=== PATIENT | female | born 1970 | race Caucasian/White ===

== ENCOUNTER 2019-08-21 13:19 | Inpatient (IN) ==
[2019-08-21] MEDS ORDERED: 0.9 % Sodium Chloride 1,000 ML IVC ONE (13:40)
[2019-08-21] MEDS ORDERED: Ipratropium/Albuterol Neb 3 ML IH ONE (13:40)
[2019-08-21 13:58] LABS: Basophils # 0.1 K/mcL (0.0-0.2); Basophils % 0.8 %; Eosinophils # 0.5 K/mcL (0.0-0.6); Eosinophils % 2.8 %; Hematocrit 33.5 % (35.3-44.9); Hemoglobin 10.8 g/dL (11.5-15.4); Immature Granulocytes % 0.9 % (0-4); Lymphocytes # 1.7 K/mcL (0.6-4.6); Mean Corpuscular HGB Conc 32.2 g/dL (31.6-35.5); Mean Corpuscular Hemoglobin 28.3 pg (28.0-33.3); Mean Corpuscular Volume 87.7 fL (83.0-100.0); Mean Platelet Volume 9.6 fL (9.4-12.4); Monocytes # 1.3 K/mcL (0.0-1.3); Monocytes % 6.8 %; Neutrophils # 14.8 K/mcL (1.6-8.9); Platelet Count 326 K/mcL (140-400); Red Blood Count 3.82 M/mcL (3.82-4.97); Red Cell Distribution Width 14.5 % (11.5-14.5); Segmented Neutrophils % 79.7 %; White Blood Count 18.5 K/mcL (4.3-11.1)
[2019-08-21 14:14] LABS: BUN/Creatinine Ratio 23 (6-26); Blood Urea Nitrogen 16 mg/dL (6-20); Calcium 9.2 mg/dL (8.6-10.3); Carbon Dioxide 26 mEq/L (23-29); Chloride 105 mEq/L (98-107); Glucose 124 mg/dL (70-105); Osmolality,Calculated 293 (280-300); Sodium 140 mEq/L (136-145); eGFR For African Americans > 60 (> 60); eGFR For Non-African Americans > 60 (> 60)
[2019-08-21] MEDS ORDERED: cefTRIAXone 1,000 MG in 0.9 % Sodium Chloride Mini Bag 100 ML IVPB ONE (14:53)
[2019-08-21] MEDS ORDERED: Isovue-370 500 ML BOTTLE IVP ONE (14:53)
[2019-08-21] MEDS ORDERED: Azithromycin 500 MG in 0.9 % Sodium Chloride 250 ML IVPB ONE (14:53)
[2019-08-21 15:10] LABS: Bilirubin,Urine Negative (Negative); Blood,Urine Negative (Negative); Clarity,Urine Clear (Clear); Color,Urine Yellow (Yellow); Glucose,Urine (UA) Normal (Normal); Ketones,Urine Negative (Negative); Leukocyte Esterase,Urine Negative (Negative); Nitrite,Urine Negative (Negative); Protein,Urine 30 mg/dL (Neg-Trace); Specific Gravity,Urine 1.017 (1.010-1.025); Urobilinogen,Urine Normal (Normal)
[2019-08-21 15:11] LABS: Bacteria,Urine None Seen per hpf (None-Few); Hyaline Casts,Urine None Seen per lpf (None-Few); RBC,Urine 0-3 per hpf (0-3); Squamous Epithelial Cell,Urine Many per lpf (None-Few); WBC,Urine 0-3 per hpf (0-3)
[2019-08-21] MEDS ORDERED: Ondansetron 4 MG/2 ML VIAL IVP PRN (17:17)
[2019-08-21] MEDS ORDERED: Naloxone 0.4 MG/ML INJ IVP PRN (17:17)
[2019-08-21] MEDS ORDERED: Acetaminophen 325 MG TABLET PO PRN (17:17)
[2019-08-21] MEDS ORDERED: hydrOXYzine pamoate 25 MG CAPSULE PO PRN (17:21)
[2019-08-21] MEDS ORDERED: *HR* Dextrose 50 % in Water (Syg) 50 ML SYRINGE IVP PRN (17:23)
[2019-08-21] MEDS ORDERED: Dextrose Gel 15 GM/37.5 ML TUBE PO PRN ×2 (17:23)
[2019-08-21] MEDS ORDERED: D5% in Water 1,000 ML IVC PRN (17:23)
[2019-08-21] MEDS ORDERED: Ipratropium/Albuterol Neb 3 ML IH PRN (17:27)
[2019-08-21] MEDS ORDERED: GuaiFENesin Liq 200 MG/10 ML UDC PO PRN (17:50)
[2019-08-21] MEDS: Doxycycline 100 MG in 0.9 % Sodium Chloride Mini Bag 100 ML IVPB SCH (18:40)
[2019-08-21 19:50] LABS: Adenovirus Not Detected (Not Detect); Bordetella Pertussis Not Detected (Not Detect); Chlamydophila pneumoniae Not Detected (Not Detect); Coronavirus 229E Not Detected (Not Detect); Coronavirus HKU1 Not Detected (Not Detect); Coronavirus NL63 Not Detected (Not Detect); Coronavirus OC43 Not Detected (Not Detect); Human Metapneumovirus Not Detected (Not Detect); Human Rhinovirus/Enterovirus Not Detected (Not Detect); Influenza A Subtype 2009 H1 Not Detected (Not Detect); Influenza A Untypeable Not Detected (Not Detect); Influenza B Not Detected (Not Detect); Mycoplasma pneumoniae Not Detected (Not Detect); Parainfluenza Virus 1 Not Detected (Not Detect); Parainfluenza Virus 2 Not Detected (Not Detect); Parainfluenza Virus 3 Not Detected (Not Detect); Parainfluenza Virus 4 Not Detected (Not Detect); Respiratory Syncytial Virus Not Detected (Not Detect)
[2019-08-21] MEDS: tiZANidine 4 MG TABLET PO PRN (20:35)
[2019-08-21] MEDS: Insulin DETEMIR 100 UNIT/ML X5UNITS SQ SCH (20:36)
[2019-08-21] MEDS: Ipratropium/Albuterol Neb 3 ML IH SCH (21:07)
[2019-08-21] MEDS: *HR* Heparin 5,000 UNIT/ML VIAL SQ SCH (23:47)
[2019-08-21] MEDS: Piperacillin/Tazobactam 3.375 GM in 0.9 % Sodium Chloride Mini Bag 100 ML IVPB SCH (23:48)
[2019-08-22 02:06] LABS: Basophils # 0.1 K/mcL (0.0-0.2); Basophils % 0.8 %; Eosinophils # 0.6 K/mcL (0.0-0.6); Eosinophils % 3.4 %; Hematocrit 28.5 % (35.3-44.9); Immature Granulocytes % 0.8 % (0-4); Lymphocytes # 2.1 K/mcL (0.6-4.6); Lymphocytes % 12.4 %; Mean Corpuscular HGB Conc 31.6 g/dL (31.6-35.5); Mean Corpuscular Hemoglobin 28.5 pg (28.0-33.3); Mean Corpuscular Volume 90.2 fL (83.0-100.0); Mean Platelet Volume 10.1 fL (9.4-12.4); Monocytes # 1.4 K/mcL (0.0-1.3); Monocytes % 8.3 %; Neutrophils # 12.8 K/mcL (1.6-8.9); Platelet Count 288 K/mcL (140-400); Red Blood Count 3.16 M/mcL (3.82-4.97); Red Cell Distribution Width 14.5 % (11.5-14.5); Segmented Neutrophils % 74.3 %; White Blood Count 17.2 K/mcL (4.3-11.1)
[2019-08-22 02:22] LABS: BUN/Creatinine Ratio 15 (6-26); Blood Urea Nitrogen 13 mg/dL (6-20); Calcium 8.3 mg/dL (8.6-10.3); Carbon Dioxide 26 mEq/L (23-29); Chloride 106 mEq/L (98-107); Glucose 135 mg/dL (70-105); Magnesium 1.2 mg/dL (1.6-2.6); Osmolality,Calculated 290 (280-300); Potassium 4.2 mEq/L (3.5-5.1); Sodium 139 mEq/L (136-145); eGFR For African Americans > 60 (> 60); eGFR For Non-African Americans > 60 (> 60)
[2019-08-22] MEDS: Ipratropium/Albuterol Neb 3 ML IH SCH ×4 (04:19→21:56)
[2019-08-22] MEDS: Doxycycline 100 MG in 0.9 % Sodium Chloride Mini Bag 100 ML IVPB SCH ×2 (06:34→17:18)
[2019-08-22] MEDS ORDERED: Perflutren Lipid Microsphere 1.3 ML in 0.9 % Sodium Chloride 8.7 ML IVP ONE (07:55)
[2019-08-22 08:13] LABS: Hemoglobin 10.2 g/dL (11.5-15.4)
[2019-08-22] MEDS ORDERED: Perflutren Lipid Microsphere 2 ML VIAL ONE (08:21)
[2019-08-22] MEDS: Insulin LISPRO 300 UNITS/3 ML VIAL SQ SCH ×3 (09:22→17:16)
[2019-08-22] MEDS: Piperacillin/Tazobactam 3.375 GM in 0.9 % Sodium Chloride Mini Bag 100 ML IVPB SCH ×3 (09:22→22:45)
[2019-08-22] MEDS: *HR* HYDROcodone/Acet 5/325 mg TABLET PO PRN ×2 (09:24→22:50)
[2019-08-22] MEDS ORDERED: Furosemide 20 MG/2 ML VIAL IVP ONE (13:47)
[2019-08-22] MEDS ORDERED: Vancomycin 1 EACH in 0.9 % Sodium Chloride 500 ML IVPB SCH (14:00)
[2019-08-22] MEDS: Multivit/Ca/Min/Fe/FA 1 TAB TABLET PO SCH (14:01)
[2019-08-22] MEDS: Magnesium Oxide 400 MG TABLET PO SCH ×3 (14:01→20:44)
[2019-08-22] MEDS: Loratadine 10 MG TABLET PO SCH (14:01)
[2019-08-22] MEDS: amLODIPine 5 MG TABLET PO SCH (14:02)
[2019-08-22] MEDS: *HR* Heparin 5,000 UNIT/ML VIAL SQ SCH ×3 (14:02→22:50)
[2019-08-22] MEDS: Lisinopril 20 MG TABLET PO SCH (14:02)
[2019-08-22] MEDS: (Mirabegron [Myrbetriq] 50 MG) PO SCH (14:03)
[2019-08-22] MEDS: MethylPREDNISolone 40 MG/ML VIAL IVP SCH ×2 (17:15→22:50)
[2019-08-22] MEDS: Insulin DETEMIR 100 UNIT/ML X5UNITS SQ SCH (20:44)
[2019-08-23] MEDS: Ipratropium/Albuterol Neb 3 ML IH SCH ×4 (04:18→21:04)
[2019-08-23] MEDS: Doxycycline 100 MG in 0.9 % Sodium Chloride Mini Bag 100 ML IVPB SCH ×2 (05:08→18:39)
[2019-08-23 05:27] LABS: Basophils # 0.1 K/mcL (0.0-0.2); Basophils % 0.4 %; Hematocrit 30.7 % (35.3-44.9); Hemoglobin 9.5 g/dL (11.5-15.4); Immature Granulocytes % 1.7 % (0-4); Lymphocytes # 0.8 K/mcL (0.6-4.6); Lymphocytes % 4.2 %; Mean Corpuscular HGB Conc 30.9 g/dL (31.6-35.5); Mean Corpuscular Hemoglobin 27.9 pg (28.0-33.3); Mean Corpuscular Volume 90.3 fL (83.0-100.0); Mean Platelet Volume 9.9 fL (9.4-12.4); Monocytes # 0.4 K/mcL (0.0-1.3); Neutrophils # 18.3 K/mcL (1.6-8.9); Platelet Count 265 K/mcL (140-400); Red Cell Distribution Width 14.5 % (11.5-14.5); Segmented Neutrophils % 91.7 %; White Blood Count 19.9 K/mcL (4.3-11.1)
[2019-08-23 05:43] LABS: BUN/Creatinine Ratio 21 (6-26); Blood Urea Nitrogen 15 mg/dL (6-20); Calcium 8.6 mg/dL (8.6-10.3); Carbon Dioxide 25 mEq/L (23-29); Chloride 104 mEq/L (98-107); Glucose 296 mg/dL (70-105); Osmolality,Calculated 296 (280-300); Potassium 4.8 mEq/L (3.5-5.1); Sodium 137 mEq/L (136-145); eGFR For African Americans > 60 (> 60); eGFR For Non-African Americans > 60 (> 60)
[2019-08-23] MEDS: Piperacillin/Tazobactam 3.375 GM in 0.9 % Sodium Chloride Mini Bag 100 ML IVPB SCH ×2 (09:58→16:28)
[2019-08-23] MEDS: Loratadine 10 MG TABLET PO SCH (09:59)
[2019-08-23] MEDS: *HR* Heparin 5,000 UNIT/ML VIAL SQ SCH ×2 (09:59→16:26)
[2019-08-23] MEDS: Multivit/Ca/Min/Fe/FA 1 TAB TABLET PO SCH (09:59)
[2019-08-23] MEDS: amLODIPine 5 MG TABLET PO SCH (09:59)
[2019-08-23] MEDS: Lisinopril 20 MG TABLET PO SCH (09:59)
[2019-08-23] MEDS: Magnesium Oxide 400 MG TABLET PO SCH (09:59)
[2019-08-23] MEDS: MethylPREDNISolone 40 MG/ML VIAL IVP SCH ×2 (10:00→16:26)
[2019-08-23] MEDS: Insulin LISPRO 300 UNITS/3 ML VIAL SQ SCH ×4 (10:00→22:06)
[2019-08-23] MEDS: (Mirabegron [Myrbetriq] 50 MG) PO SCH (10:01)
[2019-08-23 10:09] LABS: Magnesium 1.7 mg/dL (1.6-2.6); Phosphorous 4.7 mg/dL (2.7-4.5)
[2019-08-23] MEDS ORDERED: Furosemide 20 MG/2 ML VIAL IVP ONE ×2 (10:27→17:00)
[2019-08-23] MEDS: Insulin DETEMIR 100 UNIT/ML X5UNITS SQ SCH ×2 (12:08→20:47)
[2019-08-23] MEDS ORDERED: Aminoglycoside Consult 1 EACH MC ONE (14:54)
[2019-08-23 18:49] LABS: Magnesium 2.1 mg/dL (1.6-2.6); Phosphorous 2.7 mg/dL (2.7-4.5); Potassium 4.7 mEq/L (3.5-5.1)
[2019-08-23] MEDS ORDERED: *HR* Dextrose 50 % in Water (Syg) 50 ML SYRINGE IVP PRN (21:38)
[2019-08-23] MEDS ORDERED: Dextrose Gel 15 GM/37.5 ML TUBE PO PRN ×2 (21:38)
[2019-08-23] MEDS ORDERED: D5% in Water 1,000 ML IVC PRN (21:38)
[2019-08-24] MEDS: *HR* Heparin 5,000 UNIT/ML VIAL SQ SCH ×3 (01:05→16:10)
[2019-08-24] MEDS: MethylPREDNISolone 40 MG/ML VIAL IVP SCH ×3 (01:05→20:11)
[2019-08-24] MEDS: Piperacillin/Tazobactam 3.375 GM in 0.9 % Sodium Chloride Mini Bag 100 ML IVPB SCH ×3 (01:06→16:58)
[2019-08-24] MEDS: Ipratropium/Albuterol Neb 3 ML IH SCH ×4 (04:34→22:24)
[2019-08-24 04:48] LABS: Basophils % 0.2 %; Hematocrit 29.6 % (35.3-44.9); Hemoglobin 9.5 g/dL (11.5-15.4); Immature Granulocytes % 1.8 % (0-4); Lymphocytes # 0.8 K/mcL (0.6-4.6); Lymphocytes % 3.8 %; Mean Corpuscular HGB Conc 32.1 g/dL (31.6-35.5); Mean Corpuscular Hemoglobin 28.3 pg (28.0-33.3); Mean Corpuscular Volume 88.1 fL (83.0-100.0); Monocytes # 0.8 K/mcL (0.0-1.3); Monocytes % 3.9 %; Platelet Count 327 K/mcL (140-400); Red Blood Count 3.36 M/mcL (3.82-4.97); Red Cell Distribution Width 14.2 % (11.5-14.5); Segmented Neutrophils % 90.3 %; White Blood Count 21.1 K/mcL (4.3-11.1)
[2019-08-24 05:07] LABS: BUN/Creatinine Ratio 29 (6-26); Blood Urea Nitrogen 26 mg/dL (6-20); Calcium 9.1 mg/dL (8.6-10.3); Carbon Dioxide 29 mEq/L (23-29); Chloride 101 mEq/L (98-107); Glucose 345 mg/dL (70-105); Magnesium 1.9 mg/dL (1.6-2.6); Osmolality,Calculated 302 (280-300); Potassium 4.9 mEq/L (3.5-5.1); Sodium 137 mEq/L (136-145); eGFR For African Americans > 60 (> 60); eGFR For Non-African Americans > 60 (> 60)
[2019-08-24] MEDS: Doxycycline 100 MG in 0.9 % Sodium Chloride Mini Bag 100 ML IVPB SCH ×2 (05:45→21:25)
[2019-08-24] MEDS: Lisinopril 20 MG TABLET PO SCH (08:49)
[2019-08-24] MEDS: amLODIPine 5 MG TABLET PO SCH (08:49)
[2019-08-24] MEDS: Magnesium Oxide 400 MG TABLET PO SCH (08:49)
[2019-08-24] MEDS: Loratadine 10 MG TABLET PO SCH (08:49)
[2019-08-24] MEDS: Multivit/Ca/Min/Fe/FA 1 TAB TABLET PO SCH (08:49)
[2019-08-24] MEDS: Insulin LISPRO 300 UNITS/3 ML VIAL SQ SCH ×8 (08:50→20:11)
[2019-08-24] MEDS: (Mirabegron [Myrbetriq] 50 MG) PO SCH (08:51)
[2019-08-24] MEDS: Insulin DETEMIR 100 UNIT/ML X5UNITS SQ SCH ×2 (08:52→20:12)
[2019-08-24 10:32] LABS: BUN/Creatinine Ratio 32 (6-26); Blood Urea Nitrogen 29 mg/dL (6-20); Calcium 9.1 mg/dL (8.6-10.3); Carbon Dioxide 25 mEq/L (23-29); Chloride 101 mEq/L (98-107); Glucose 379 mg/dL (70-105); Osmolality,Calculated 301 (280-300); Potassium 4.9 mEq/L (3.5-5.1); Sodium 135 mEq/L (136-145); eGFR For African Americans > 60 (> 60); eGFR For Non-African Americans > 60 (> 60)
[2019-08-25] MEDS: Piperacillin/Tazobactam 3.375 GM in 0.9 % Sodium Chloride Mini Bag 100 ML IVPB SCH ×4 (00:11→23:44)
[2019-08-25] MEDS: *HR* Heparin 5,000 UNIT/ML VIAL SQ SCH ×4 (00:12→23:44)
[2019-08-25] MEDS: Ipratropium/Albuterol Neb 3 ML IH SCH ×4 (04:01→21:20)
[2019-08-25 05:07] LABS: Basophils # 0.1 K/mcL (0.0-0.2); Basophils % 0.3 %; Eosinophils % 0.1 %; Hematocrit 30.2 % (35.3-44.9); Hemoglobin 9.6 g/dL (11.5-15.4); Immature Granulocytes % 2.3 % (0-4); Lymphocytes # 1.9 K/mcL (0.6-4.6); Lymphocytes % 10.3 %; Mean Corpuscular HGB Conc 31.8 g/dL (31.6-35.5); Mean Corpuscular Hemoglobin 28.2 pg (28.0-33.3); Mean Corpuscular Volume 88.6 fL (83.0-100.0); Mean Platelet Volume 9.7 fL (9.4-12.4); Monocytes % 5.4 %; Neutrophils # 15.4 K/mcL (1.6-8.9); Platelet Count 336 K/mcL (140-400); Red Blood Count 3.41 M/mcL (3.82-4.97); Segmented Neutrophils % 81.6 %; White Blood Count 18.8 K/mcL (4.3-11.1)
[2019-08-25] MEDS: Doxycycline 100 MG in 0.9 % Sodium Chloride Mini Bag 100 ML IVPB SCH ×2 (05:07→19:41)
[2019-08-25 05:24] LABS: BUN/Creatinine Ratio 36 (6-26); Blood Urea Nitrogen 34 mg/dL (6-20); Carbon Dioxide 28 mEq/L (23-29); Chloride 102 mEq/L (98-107); Glucose 288 mg/dL (70-105); Magnesium 1.8 mg/dL (1.6-2.6); Osmolality,Calculated 302 (280-300); Potassium 4.8 mEq/L (3.5-5.1); Sodium 137 mEq/L (136-145); eGFR For African Americans > 60 (> 60); eGFR For Non-African Americans > 60 (> 60)
[2019-08-25] MEDS: Magnesium Oxide 400 MG TABLET PO SCH (08:26)
[2019-08-25] MEDS: Lisinopril 20 MG TABLET PO SCH (08:26)
[2019-08-25] MEDS: Loratadine 10 MG TABLET PO SCH (08:26)
[2019-08-25] MEDS: Multivit/Ca/Min/Fe/FA 1 TAB TABLET PO SCH (08:26)
[2019-08-25] MEDS: amLODIPine 5 MG TABLET PO SCH (08:27)
[2019-08-25] MEDS: Insulin LISPRO 300 UNITS/3 ML VIAL SQ SCH ×7 (08:28→21:11)
[2019-08-25] MEDS: MethylPREDNISolone 40 MG/ML VIAL IVP SCH ×2 (08:30→19:40)
[2019-08-25] MEDS: Insulin DETEMIR 100 UNIT/ML X5UNITS SQ SCH ×2 (08:33→21:11)
[2019-08-25 09:05] LABS: ANA IgG by ELISA DETECTED (None Detected)
[2019-08-25 10:22] LABS: BUN/Creatinine Ratio 36 (6-26); Blood Urea Nitrogen 33 mg/dL (6-20); Calcium 9.3 mg/dL (8.6-10.3); Carbon Dioxide 28 mEq/L (23-29); Chloride 101 mEq/L (98-107); Glucose 295 mg/dL (70-105); Osmolality,Calculated 304 (280-300); Sodium 138 mEq/L (136-145); eGFR For African Americans > 60 (> 60); eGFR For Non-African Americans > 60 (> 60)
[2019-08-25] MEDS: (Mirabegron [Myrbetriq] 50 MG) PO SCH (10:45)
[2019-08-25 15:19] LABS: Phosphorous 3.5 mg/dL (2.7-4.5)
[2019-08-25] MEDS: Furosemide 20 MG TABLET PO SCH (15:40)
[2019-08-26] MEDS: tiZANidine 4 MG TABLET PO PRN (00:08)
[2019-08-26 01:47] LABS: Basophils # 0.1 K/mcL (0.0-0.2); Basophils % 0.3 %; Eosinophils % 0.1 %; Hematocrit 30.5 % (35.3-44.9); Hemoglobin 9.6 g/dL (11.5-15.4); Immature Granulocytes % 4.8 % (0-4); Lymphocytes # 1.3 K/mcL (0.6-4.6); Lymphocytes % 8.3 %; Mean Corpuscular HGB Conc 31.5 g/dL (31.6-35.5); Mean Corpuscular Hemoglobin 28.1 pg (28.0-33.3); Mean Corpuscular Volume 89.2 fL (83.0-100.0); Mean Platelet Volume 9.7 fL (9.4-12.4); Monocytes # 0.7 K/mcL (0.0-1.3); Monocytes % 4.3 %; Neutrophils # 12.9 K/mcL (1.6-8.9); Platelet Count 318 K/mcL (140-400); Red Blood Count 3.42 M/mcL (3.82-4.97); Red Cell Distribution Width 13.9 % (11.5-14.5); Segmented Neutrophils % 82.2 %; White Blood Count 15.7 K/mcL (4.3-11.1)
[2019-08-26 02:33] LABS: BUN/Creatinine Ratio 34 (6-26); Blood Urea Nitrogen 31 mg/dL (6-20); Calcium 9.2 mg/dL (8.6-10.3); Carbon Dioxide 26 mEq/L (23-29); Chloride 97 mEq/L (98-107); Glucose 343 mg/dL (70-105); Osmolality,Calculated 298 (280-300); Potassium 5.1 mEq/L (3.5-5.1); Sodium 134 mEq/L (136-145); eGFR For African Americans > 60 (> 60); eGFR For Non-African Americans > 60 (> 60)
[2019-08-26] MEDS: Ipratropium/Albuterol Neb 3 ML IH SCH ×2 (03:50→10:00)
[2019-08-26 04:52] LABS: ABG Base Excess 7 mEq/L (-2 to 3); ABG HCO3 31 mEq/L (21-27); ABG Oxygen Saturation 93 % (95-98); ABG PCO2 46 mmHg (35-45); ABG PH 7.45 pH Units (7.32-7.45); ABG PO2 66 mmHg (85-104); ABG TCO2 33 mEq/L (20-26)
[2019-08-26] MEDS: Doxycycline 100 MG in 0.9 % Sodium Chloride Mini Bag 100 ML IVPB SCH (05:35)
[2019-08-26 08:37] LABS: Serine Protease-3 Antibody 2 AU/mL (0-19)
[2019-08-26] MEDS: Insulin DETEMIR 100 UNIT/ML X5UNITS SQ SCH (09:25)
[2019-08-26] MEDS: Piperacillin/Tazobactam 3.375 GM in 0.9 % Sodium Chloride Mini Bag 100 ML IVPB SCH (09:25)
[2019-08-26] MEDS: Multivit/Ca/Min/Fe/FA 1 TAB TABLET PO SCH (09:26)
[2019-08-26] MEDS: MethylPREDNISolone 40 MG/ML VIAL IVP SCH (09:26)
[2019-08-26] MEDS: Magnesium Oxide 400 MG TABLET PO SCH (09:26)
[2019-08-26] MEDS: Loratadine 10 MG TABLET PO SCH (09:26)
[2019-08-26] MEDS: Lisinopril 20 MG TABLET PO SCH (09:26)
[2019-08-26] MEDS: amLODIPine 5 MG TABLET PO SCH (09:26)
[2019-08-26] MEDS: Furosemide 20 MG TABLET PO SCH (09:27)
[2019-08-26] MEDS: *HR* Heparin 5,000 UNIT/ML VIAL SQ SCH (09:27)
[2019-08-26] MEDS: Insulin LISPRO 300 UNITS/3 ML VIAL SQ SCH ×4 (09:27→11:37)
[2019-08-26] MEDS: (Mirabegron [Myrbetriq] 50 MG) PO SCH (09:28)
[2019-08-26 10:38] LABS: ANA HEp-2 IgG IFA <1:80 (<1:80)
[2019-08-26 11:15] VITALS: BP 173/87
[2019-08-26 16:50] LABS: APTT (LE Anticoag) 48 sec (32-48); Diluted Russell Viper Venom 36 sec (33-44)
[2019-08-27 12:54] LABS: GBM IgG Multiplex Bead Assay 0 AU/mL (0-19); Glomerular Basement Memb IgG NEGATIVE (Negative)
== END 2019-08-26 14:55 | disposition home or self-care (01) | DRG 871 ==
LOC: 2NNU 13:19 → EMEROOARM 13:19 → SUATTDRO 17:37 → 2NNU 18:15
PROVIDERS: ADMIT Internal Medicine; ATTEND Internal Medicine

== ENCOUNTER 2020-07-18 19:45 | Inpatient (IN) ==
[2020-07-18] MEDS ORDERED: Isovue-370 500 ML BOTTLE IVP ONE ×2 (20:39→23:01)
[2020-07-18 20:56] LABS: Hematocrit 37.1 % (35.3-44.9); Immature Granulocytes % 1.2 % (0-4); Lymphocytes % 14.7 %; Mean Corpuscular HGB Conc 32.3 g/dL (31.6-35.5); Mean Corpuscular Hemoglobin 26.5 pg (28.0-33.3); Mean Corpuscular Volume 82.1 fL (83.0-100.0); Mean Platelet Volume 9.9 fL (9.4-12.4); Monocytes % 5.9 %; Platelet Count 337 K/mcL (140-400); Red Blood Count 4.52 M/mcL (3.82-4.97); Red Cell Distribution Width 13.4 % (11.5-14.5); Segmented Neutrophils % 76.8 %; White Blood Count 13.2 K/mcL (4.3-11.1)
[2020-07-18 20:57] LABS: Basophils # 0.1 K/mcL (0.0-0.2); Basophils % 0.4 %; Eosinophils # 0.1 K/mcL (0.0-0.6); Lymphocytes # 1.9 K/mcL (0.6-4.6); Monocytes # 0.8 K/mcL (0.0-1.3); Neutrophils # 10.1 K/mcL (1.6-8.9)
[2020-07-18 21:01] LABS: BUN/Creatinine Ratio 21 (6-26); Blood Urea Nitrogen 21 mg/dL (6-20); Calcium 8.8 mg/dL (8.6-10.3); Carbon Dioxide 22 mEq/L (23-29); Chloride 101 mEq/L (98-107); Glucose 138 mg/dL (70-105); Osmolality,Calculated 287 (280-300); Sodium 136 mEq/L (136-145); eGFR For African Americans > 60 (> 60); eGFR For Non-African Americans 58 (> 60)
[2020-07-18 21:02] LABS: Troponin I < 0.03 ng/mL (< 0.04)
[2020-07-18] MEDS ORDERED: Azithromycin 500 MG in 0.9 % Sodium Chloride 250 ML IVPB ONE (21:05)
[2020-07-18] MEDS ORDERED: cefTRIAXone 1,000 MG in 0.9 % Sodium Chloride Mini Bag 100 ML IVPB ONE (21:05)
[2020-07-18 21:40] LABS: Platelet Estimate Normal (Normal)
[2020-07-18 22:49] LABS: Adenovirus Not Detected (Not Detect); Coronavirus 229E Not Detected (Not Detect); Coronavirus HKU1 Not Detected (Not Detect); Coronavirus NL63 Not Detected (Not Detect); Coronavirus OC43 Not Detected (Not Detect)
[2020-07-18 22:50] LABS: Human Metapneumovirus Not Detected (Not Detect); Human Rhinovirus/Enterovirus Not Detected (Not Detect); Influenza A Subtype 2009 H1 Not Detected (Not Detect); Influenza B Not Detected (Not Detect); SARS-CoV-2 DETECTED (Not Detect)
[2020-07-18 22:51] LABS: Bordetella Pertussis Not Detected (Not Detect); Chlamydophila pneumoniae Not Detected (Not Detect); Mycoplasma pneumoniae Not Detected (Not Detect); Parainfluenza Virus 1 Not Detected (Not Detect); Parainfluenza Virus 2 Not Detected (Not Detect); Parainfluenza Virus 3 Not Detected (Not Detect); Parainfluenza Virus 4 Not Detected (Not Detect); Respiratory Syncytial Virus Not Detected (Not Detect)
[2020-07-18] MEDS ORDERED: Dexamethasone Sodium Phos/PF 10 MG/ML VIAL PO ONE (23:01)
[2020-07-18] MEDS ORDERED: Ondansetron 4 MG/2 ML VIAL IVP PRN (23:42)
[2020-07-18] MEDS ORDERED: Naloxone 0.4 MG/ML INJ IVP PRN (23:42)
[2020-07-19] MEDS ORDERED: D5% in Water 1,000 ML IVC PRN (01:08)
[2020-07-19] MEDS ORDERED: Dextrose Gel 15 GM/37.5 ML TUBE PO PRN ×2 (01:08)
[2020-07-19] MEDS ORDERED: *HR* Dextrose 50 % in Water (Vial) 50 ML VIAL IVP PRN (01:08)
[2020-07-19] MEDS: Insulin LISPRO 300 UNITS/3 ML VIAL SQ SCH ×4 (01:58→17:44)
[2020-07-19 02:02] LABS: INR 1.3; Prothrombin Time 14.8 Seconds (9.4-12.1)
[2020-07-19 02:03] LABS: Hematocrit 33.8 % (35.3-44.9); Hemoglobin 11.1 g/dL (11.5-15.4); Lymphocytes # 1.2 K/mcL (0.6-4.6); Mean Corpuscular HGB Conc 32.8 g/dL (31.6-35.5); Mean Corpuscular Hemoglobin 27.5 pg (28.0-33.3); Mean Corpuscular Volume 83.9 fL (83.0-100.0); Mean Platelet Volume 10.3 fL (9.4-12.4); Platelet Count 321 K/mcL (140-400); Red Blood Count 4.03 M/mcL (3.82-4.97); Red Cell Distribution Width 13.5 % (11.5-14.5); White Blood Count 11.9 K/mcL (4.3-11.1)
[2020-07-19 02:17] LABS: Alanine Aminotransferase 14 Units/L (7-52); Albumin 3.5 g/dL (3.5-5.7); Alkaline Phosphatase 75 Units/L (34-104); Aspartate Amino Transferase 27 Units/L (13-39); BUN/Creatinine Ratio 21 (6-26); Bilirubin,Total 0.5 mg/dL (0.3-1.0); Blood Urea Nitrogen 20 mg/dL (6-20); Calcium 8.5 mg/dL (8.6-10.3); Carbon Dioxide 23 mEq/L (23-29); Chloride 101 mEq/L (98-107); Globulin 3.6 g/dL (2.4-3.5); Glucose 131 mg/dL (70-105); Magnesium 1.3 mg/dL (1.6-2.6); Osmolality,Calculated 284 (280-300); Phosphorous 3.6 mg/dL (2.7-4.5); Potassium 3.9 mEq/L (3.5-5.1); Sodium 135 mEq/L (136-145); Total Protein 7.1 g/dL (6.4-8.9); eGFR For African Americans > 60 (> 60); eGFR For Non-African Americans > 60 (> 60)
[2020-07-19 02:52] LABS: Monocytes # 0.2 K/mcL (0.0-1.3); Neutrophils # 10.5 K/mcL (1.6-8.9)
[2020-07-19 02:53] LABS: Platelet Estimate Normal (Normal)
[2020-07-19] MEDS: Dexamethasone Sodium Phos/PF 10 MG/ML VIAL IVP SCH (08:19)
[2020-07-19] MEDS: cefTRIAXone 1,000 MG in Water for inj. (sterile) 10 ML IVP SCH (08:20)
[2020-07-19] MEDS: Azithromycin 500 MG in 0.9 % Sodium Chloride 250 ML IVPB SCH (08:20)
[2020-07-19] MEDS: *HR* Heparin 5,000 UNIT/ML VIAL SQ SCH ×2 (13:39→20:33)
[2020-07-19] MEDS ORDERED: *HR* HYDROcodone/Acet 5/325 mg TABLET PO PRN (20:21)
[2020-07-19] MEDS ORDERED: tiZANidine 4 MG TABLET PO PRN (20:21)
[2020-07-19] MEDS: QUEtiapine Fumarate 100 MG TABLET PO SCH (20:36)
[2020-07-19] MEDS: Latanoprost 2.5 ML BOTTLE BOTH EYES SCH (20:36)
[2020-07-19] MEDS: Acetaminophen 325 MG TABLET PO PRN (20:51)
[2020-07-19] MEDS ORDERED: Insulin DETEMIR 100 UNIT/ML X5UNITS SQ SCH (21:00)
[2020-07-20] MEDS: *HR* Heparin 5,000 UNIT/ML VIAL SQ SCH ×3 (05:14→21:08)
[2020-07-20] MEDS: Insulin LISPRO 300 UNITS/3 ML VIAL SQ SCH ×6 (07:59→21:51)
[2020-07-20] MEDS: Azithromycin 500 MG in 0.9 % Sodium Chloride 250 ML IVPB SCH (08:10)
[2020-07-20] MEDS: cefTRIAXone 1,000 MG in Water for inj. (sterile) 10 ML IVP SCH (08:11)
[2020-07-20] MEDS: Aspirin 81 MG TAB.CHEW PO SCH (08:12)
[2020-07-20] MEDS: amLODIPine 5 MG TABLET PO SCH (08:12)
[2020-07-20] MEDS: Magnesium Oxide 400 MG TABLET PO SCH (08:12)
[2020-07-20] MEDS: Dexamethasone Sodium Phos/PF 10 MG/ML VIAL IVP SCH (08:13)
[2020-07-20] MEDS: lisinopriL 20 MG TABLET PO SCH (08:13)
[2020-07-20 11:28] LABS: Basophils # 0.1 K/mcL (0.0-0.2); Basophils % 0.5 %; Eosinophils # 0.1 K/mcL (0.0-0.6); Eosinophils % 0.7 %; Hematocrit 33.7 % (35.3-44.9); Hemoglobin 10.8 g/dL (11.5-15.4); Immature Granulocytes % 2.8 % (0-4); Lymphocytes # 1.2 K/mcL (0.6-4.6); Lymphocytes % 9.5 %; Mean Corpuscular Hemoglobin 26.9 pg (28.0-33.3); Mean Corpuscular Volume 83.8 fL (83.0-100.0); Mean Platelet Volume 9.5 fL (9.4-12.4); Monocytes # 0.8 K/mcL (0.0-1.3); Neutrophils # 10.3 K/mcL (1.6-8.9); Nucleated Red Blood Cells 0.2 /100 WBC (0); Platelet Count 359 K/mcL (140-400); Red Blood Count 4.02 M/mcL (3.82-4.97); Red Cell Distribution Width 13.3 % (11.5-14.5); Segmented Neutrophils % 80.5 %; White Blood Count 12.9 K/mcL (4.3-11.1)
[2020-07-20 11:46] LABS: Alanine Aminotransferase 15 Units/L (7-52); Albumin 3.4 g/dL (3.5-5.7); Alkaline Phosphatase 68 Units/L (34-104); Aspartate Amino Transferase 31 Units/L (13-39); BUN/Creatinine Ratio 30 (6-26); Bilirubin,Total 0.3 mg/dL (0.3-1.0); Blood Urea Nitrogen 24 mg/dL (6-20); Calcium 9.1 mg/dL (8.6-10.3); Carbon Dioxide 25 mEq/L (23-29); Chloride 107 mEq/L (98-107); Globulin 3.4 g/dL (2.4-3.5); Glucose 197 mg/dL (70-105); Magnesium 1.7 mg/dL (1.6-2.6); Osmolality,Calculated 298 (280-300); Potassium 4.3 mEq/L (3.5-5.1); Sodium 139 mEq/L (136-145); Total Protein 6.8 g/dL (6.4-8.9); eGFR For African Americans > 60 (> 60); eGFR For Non-African Americans > 60 (> 60)
[2020-07-20] MEDS ORDERED: 0.9 % Sodium Chloride 500 ML ONE (16:59)
[2020-07-20] MEDS ORDERED: Insulin DETEMIR 100 UNIT/ML X5UNITS SQ SCH (21:00)
[2020-07-20] MEDS: QUEtiapine Fumarate 100 MG TABLET PO SCH (21:08)
[2020-07-20] MEDS: Latanoprost 2.5 ML BOTTLE BOTH EYES SCH (21:08)
[2020-07-20] MEDS: Acetaminophen 325 MG TABLET PO PRN (21:29)
[2020-07-20] MEDS ORDERED: 0.9 % Sodium Chloride 250 ML ONE (22:20)
[2020-07-21] MEDS: *HR* Heparin 5,000 UNIT/ML VIAL SQ SCH ×3 (05:28→21:41)
[2020-07-21 06:41] LABS: Basophils # 0.1 K/mcL (0.0-0.2); Basophils % 0.7 %; Eosinophils # 0.3 K/mcL (0.0-0.6); Eosinophils % 1.8 %; Hematocrit 31.4 % (35.3-44.9); Hemoglobin 9.7 g/dL (11.5-15.4); Immature Granulocytes % 2.9 % (0-4); Lymphocytes # 2.3 K/mcL (0.6-4.6); Lymphocytes % 17.2 %; Mean Corpuscular HGB Conc 30.9 g/dL (31.6-35.5); Mean Corpuscular Hemoglobin 26.4 pg (28.0-33.3); Mean Corpuscular Volume 85.6 fL (83.0-100.0); Mean Platelet Volume 9.8 fL (9.4-12.4); Monocytes % 7.3 %; Neutrophils # 9.5 K/mcL (1.6-8.9); Platelet Count 374 K/mcL (140-400); Red Blood Count 3.67 M/mcL (3.82-4.97); Red Cell Distribution Width 13.2 % (11.5-14.5); Segmented Neutrophils % 70.1 %; White Blood Count 13.6 K/mcL (4.3-11.1)
[2020-07-21 07:01] LABS: BUN/Creatinine Ratio 30 (6-26); Blood Urea Nitrogen 25 mg/dL (6-20); Calcium 8.9 mg/dL (8.6-10.3); Carbon Dioxide 25 mEq/L (23-29); Chloride 107 mEq/L (98-107); Glucose 178 mg/dL (70-105); Osmolality,Calculated 297 (280-300); Sodium 139 mEq/L (136-145); eGFR For African Americans > 60 (> 60); eGFR For Non-African Americans > 60 (> 60)
[2020-07-21] MEDS ORDERED: CefTRIAXone 1,000 MG VIAL ONE (08:35)
[2020-07-21] MEDS: cefTRIAXone 1,000 MG in Water for inj. (sterile) 10 ML IVP SCH ×2 (08:36→09:08)
[2020-07-21] MEDS: Azithromycin 500 MG in 0.9 % Sodium Chloride 250 ML IVPB SCH (08:38)
[2020-07-21] MEDS: Dexamethasone Sodium Phos/PF 10 MG/ML VIAL IVP SCH (08:40)
[2020-07-21] MEDS: Magnesium Oxide 400 MG TABLET PO SCH (08:41)
[2020-07-21] MEDS: amLODIPine 5 MG TABLET PO SCH (08:41)
[2020-07-21] MEDS: Aspirin 81 MG TAB.CHEW PO SCH (08:42)
[2020-07-21] MEDS: lisinopriL 20 MG TABLET PO SCH (08:43)
[2020-07-21] MEDS: Insulin LISPRO 300 UNITS/3 ML VIAL SQ SCH ×7 (08:43→21:59)
[2020-07-21] MEDS ORDERED: Furosemide 20 MG/2 ML VIAL IVP ONE (10:37)
[2020-07-21] MEDS ORDERED: Insulin DETEMIR 100 UNIT/ML X5UNITS SQ SCH (21:00)
[2020-07-21] MEDS: Acetaminophen 325 MG TABLET PO PRN (21:38)
[2020-07-21] MEDS: QUEtiapine Fumarate 100 MG TABLET PO SCH (21:38)
[2020-07-21] MEDS: Latanoprost 2.5 ML BOTTLE BOTH EYES SCH (21:41)
[2020-07-22 02:41] LABS: Basophils # 0.1 K/mcL (0.0-0.2); Basophils % 0.6 %; Eosinophils # 0.2 K/mcL (0.0-0.6); Eosinophils % 1.2 %; Hematocrit 31.8 % (35.3-44.9); Hemoglobin 10.2 g/dL (11.5-15.4); Immature Granulocytes % 4.4 % (0-4); Lymphocytes # 2.2 K/mcL (0.6-4.6); Lymphocytes % 16.3 %; Mean Corpuscular HGB Conc 32.1 g/dL (31.6-35.5); Mean Corpuscular Hemoglobin 27.6 pg (28.0-33.3); Mean Corpuscular Volume 85.9 fL (83.0-100.0); Mean Platelet Volume 9.9 fL (9.4-12.4); Monocytes % 7.5 %; Neutrophils # 9.5 K/mcL (1.6-8.9); Platelet Count 401 K/mcL (140-400); Red Cell Distribution Width 13.2 % (11.5-14.5); White Blood Count 13.5 K/mcL (4.3-11.1)
[2020-07-22 03:06] LABS: Alanine Aminotransferase 18 Units/L (7-52); Albumin 3.2 g/dL (3.5-5.7); Albumin/Globulin Ratio 0.9 (1.1-2.2); Alkaline Phosphatase 66 Units/L (34-104); Aspartate Amino Transferase 22 Units/L (13-39); BUN/Creatinine Ratio 31 (6-26); Bilirubin,Total 0.3 mg/dL (0.3-1.0); Blood Urea Nitrogen 31 mg/dL (6-20); Calcium 8.7 mg/dL (8.6-10.3); Carbon Dioxide 23 mEq/L (23-29); Chloride 103 mEq/L (98-107); Globulin 3.5 g/dL (2.4-3.5); Glucose 368 mg/dL (70-105); Magnesium 1.3 mg/dL (1.6-2.6); Osmolality,Calculated 306 (280-300); Sodium 137 mEq/L (136-145); Total Protein 6.7 g/dL (6.4-8.9); eGFR For African Americans > 60 (> 60); eGFR For Non-African Americans 60 (> 60)
[2020-07-22] MEDS: *HR* Heparin 5,000 UNIT/ML VIAL SQ SCH ×3 (05:28→20:02)
[2020-07-22] MEDS: lisinopriL 20 MG TABLET PO SCH (08:10)
[2020-07-22] MEDS: Magnesium Oxide 400 MG TABLET PO SCH (08:10)
[2020-07-22] MEDS: Azithromycin 250 MG TABLET PO SCH (08:10)
[2020-07-22] MEDS: amLODIPine 5 MG TABLET PO SCH (08:10)
[2020-07-22] MEDS: Aspirin 81 MG TAB.CHEW PO SCH (08:10)
[2020-07-22] MEDS: Dexamethasone Sodium Phos/PF 10 MG/ML VIAL IVP SCH (08:11)
[2020-07-22] MEDS: cefTRIAXone 1,000 MG in Water for inj. (sterile) 10 ML IVP SCH (08:12)
[2020-07-22] MEDS: Insulin LISPRO 300 UNITS/3 ML VIAL SQ SCH ×6 (08:14→17:29)
[2020-07-22] MEDS ORDERED: Dextrose Gel 15 GM/37.5 ML TUBE PO PRN ×2 (12:31)
[2020-07-22] MEDS ORDERED: D5% in Water 1,000 ML IVC PRN (12:31)
[2020-07-22] MEDS ORDERED: *HR* Dextrose 50 % in Water (Vial) 50 ML VIAL IVP PRN (12:31)
[2020-07-22] MEDS ORDERED: Furosemide 20 MG/2 ML VIAL IVP ONE (17:01)
[2020-07-22] MEDS: QUEtiapine Fumarate 100 MG TABLET PO SCH (20:02)
[2020-07-22] MEDS: Latanoprost 2.5 ML BOTTLE BOTH EYES SCH (20:03)
[2020-07-22] MEDS ORDERED: Insulin LISPRO 300 UNITS/3 ML VIAL SQ SCH (21:00)
[2020-07-22] MEDS ORDERED: Insulin DETEMIR 100 UNIT/ML X5UNITS SQ SCH (21:00)
[2020-07-23] MEDS: Acetaminophen 325 MG TABLET PO PRN (00:39)
[2020-07-23] MEDS: *HR* Heparin 5,000 UNIT/ML VIAL SQ SCH ×2 (05:17→16:18)
[2020-07-23 05:40] LABS: Hematocrit 32.8 % (35.3-44.9); Hemoglobin 10.3 g/dL (11.5-15.4); Mean Corpuscular HGB Conc 31.4 g/dL (31.6-35.5); Mean Corpuscular Hemoglobin 26.3 pg (28.0-33.3); Mean Corpuscular Volume 83.9 fL (83.0-100.0); Mean Platelet Volume 9.7 fL (9.4-12.4); Platelet Count 396 K/mcL (140-400); Red Blood Count 3.91 M/mcL (3.82-4.97); Red Cell Distribution Width 13.3 % (11.5-14.5)
[2020-07-23 06:08] LABS: BUN/Creatinine Ratio 35 (6-26); Blood Urea Nitrogen 33 mg/dL (6-20); Calcium 9.4 mg/dL (8.6-10.3); Carbon Dioxide 27 mEq/L (23-29); Chloride 101 mEq/L (98-107); Glucose 200 mg/dL (70-105); Magnesium 1.5 mg/dL (1.6-2.6); Osmolality,Calculated 299 (280-300); Phosphorous 4.3 mg/dL (2.7-4.5); Potassium 4.3 mEq/L (3.5-5.1); Sodium 138 mEq/L (136-145); eGFR For African Americans > 60 (> 60); eGFR For Non-African Americans > 60 (> 60)
[2020-07-23] MEDS: Azithromycin 250 MG TABLET PO SCH (07:47)
[2020-07-23] MEDS: Aspirin 81 MG TAB.CHEW PO SCH (07:47)
[2020-07-23] MEDS: Magnesium Oxide 400 MG TABLET PO SCH (07:47)
[2020-07-23] MEDS: lisinopriL 20 MG TABLET PO SCH (07:47)
[2020-07-23] MEDS: amLODIPine 5 MG TABLET PO SCH (07:47)
[2020-07-23] MEDS: cefTRIAXone 1,000 MG in Water for inj. (sterile) 10 ML IVP SCH (07:48)
[2020-07-23] MEDS: Dexamethasone Sodium Phos/PF 10 MG/ML VIAL IVP SCH (07:48)
[2020-07-23] MEDS: Insulin LISPRO 300 UNITS/3 ML VIAL SQ SCH ×6 (07:49→16:18)
[2020-07-23 09:21] LABS: C-Reactive Protein < 5 mg/L (Less than 10)
[2020-07-23] MEDS ORDERED: 0.9 % Sodium Chloride 250 ML ONE (12:27)
[2020-07-23 14:55] VITALS: BP 161/87
== END 2020-07-23 17:26 | disposition home or self-care (01) | DRG 871 ==
LOC: EMEROOARM 19:45 → 2NENU 19:45 → SUATTDRO 23:17 → 2NENU 07-19 00:11 → SUATTDRO 07-19 14:59
PROVIDERS: ADMIT Internal Medicine; ATTEND Internal Medicine

== ENCOUNTER 2022-04-06 06:01 | Inpatient (IN) ==
[2022-04-06] MEDS ORDERED: Iopamidol - 370 500 ML MLS IVP ONE (06:56)
[2022-04-06 07:48] LABS: Hematocrit 27.7 % (35.3-44.9); Hemoglobin 9.1 g/dL (11.5-15.4); Immature Platelets 4.6 % (1.1-6.1); Mean Corpuscular HGB Conc 32.9 g/dL (31.6-35.5); Mean Corpuscular Volume 88.2 fL (83.0-100.0); Mean Platelet Volume 10.9 fL (9.4-12.4); Platelet Count 333 K/mcL (140-400); Red Blood Count 3.14 M/mcL (3.82-4.97); Red Cell Distribution Width 13.8 % (11.5-14.5)
[2022-04-06 07:55] LABS: BUN/Creatinine Ratio 14 (6-26); Blood Urea Nitrogen 44 mg/dL (6-20); Calcium 8.1 mg/dL (8.6-10.3); Carbon Dioxide 16 mEq/L (23-29); Chloride 91 mEq/L (98-107); Glucose 383 mg/dL (70-105); Osmolality,Calculated 283 (280-300); Potassium 4.5 mEq/L (3.5-5.1); Sodium 123 mEq/L (136-145); eGFR For African Americans 18 (> 60); eGFR For Non-African Americans 15 (> 60)
[2022-04-06] MEDS: 0.9 % Sodium Chloride 1,000 ML IVC SCH ×2 (08:15→09:26)
[2022-04-06 08:16] LABS: Monocytes # 0.8 K/mcL (0.0-1.3); Neutrophils # 38.8 K/mcL (1.6-8.9); Platelet Estimate Normal (Normal)
[2022-04-06 08:20] LABS: C-Reactive Protein > 300 mg/L (Less than 10)
[2022-04-06 08:54] LABS: INR 1.6; Prothrombin Time 18.3 Seconds (9.4-12.1)
[2022-04-06 08:57] LABS: Activated Partial Thrombo Time 28.9 Seconds (26.0-36.0)
[2022-04-06] MEDS ORDERED: Vancomycin 1,750 MG/517.5 ML IV.SOLN IVPB ONE (09:13)
[2022-04-06] MEDS ORDERED: Cefepime HCl 2,000 MG in 0.9 % Sodium Chloride Mini Bag 100 ML IVPB STA (09:13)
[2022-04-06 09:28] LABS: Alanine Aminotransferase 28 Units/L (7-52); Albumin/Globulin Ratio 0.7 (1.1-2.2); Alkaline Phosphatase 618 Units/L (34-104); Aspartate Amino Transferase 45 Units/L (13-39); Bilirubin,Direct 0.6 mg/dL (0.0-0.2); Bilirubin,Indirect 0.7 mg/dL (0.0-1.0); Bilirubin,Total 1.3 mg/dL (0.3-1.0); Globulin 4.4 g/dL (2.4-3.5); Magnesium 1.3 mg/dL (1.6-2.6); Phosphorous 3.1 mg/dL (2.7-4.5); Total Protein 7.4 g/dL (6.4-8.9)
[2022-04-06] MEDS ORDERED: Aspirin 325 MG TABLET PO ONE (09:40)
[2022-04-06] MEDS ORDERED: Clindamycin 600 MG/50 ML 600 MG/50 ML IV.SOLN IVPB ONE (09:41)
[2022-04-06] MEDS ORDERED: Tdap (Boostrix) Vaccine 0.5 ML SYRINGE IM ONE (09:47)
[2022-04-06 10:20] LABS: VBG HCO3 17 mEq/L (21-27); VBG PCO2 37 mmHg (41-51); VBG PH 7.27 pH Units (7.32-7.42); VBG PO2 56 mmHg (25-50)
[2022-04-06] MEDS ORDERED: D5% in 0.45% NACL 1,000 ML IVC PRN (12:16)
[2022-04-06] MEDS ORDERED: Insulin Regular, Human 100 UNIT/ML IV ONE (12:16)
[2022-04-06] MEDS ORDERED: Insulin Regular, Human 100 UNIT/ML IV PRN ×2 (12:16)
[2022-04-06] MEDS ORDERED: *HR* Dextrose 50 % in Water (Syg) 50 ML SYRINGE IVP PRN (12:16)
[2022-04-06] MEDS ORDERED: D5% in 0.45% NACL w KCl 20 MEQ/1,000 ML MLS IVC PRN (12:16)
[2022-04-06] MEDS ORDERED: 0.9 % Sodium Chloride 1,000 ML IVC SCH ×3 (12:30)
[2022-04-06] MEDS ORDERED: 0.45 % Sodium Chloride w/KCl 20 MEQ/1,000 ML MLS IVC SCH ×2 (12:30)
[2022-04-06] MEDS ORDERED: 0.9 % Sodium Chloride w KCl 20 MEQ/1,000 ML MLS IVC SCH ×2 (12:30)
[2022-04-06 14:57] LABS: VBG HCO3 17 mEq/L (21-27); VBG PCO2 28 mmHg (41-51); VBG PO2 136 mmHg (25-50)
[2022-04-06 15:21] LABS: BUN/Creatinine Ratio 16 (6-26); Blood Urea Nitrogen 42 mg/dL (6-20); Calcium 7.5 mg/dL (8.6-10.3); Carbon Dioxide 18 mEq/L (23-29); Chloride 100 mEq/L (98-107); Glucose 383 mg/dL (70-105); Osmolality,Calculated 292 (280-300); Potassium 4.6 mEq/L (3.5-5.1); Sodium 128 mEq/L (136-145); Troponin I 0.04 ng/mL (< 0.04); eGFR For African Americans 24 (> 60); eGFR For Non-African Americans 20 (> 60)
[2022-04-06] MEDS ORDERED: Insulin Human Regular 10 UNIT in 0.9 % Sodium Chloride 10 ML IV ONE (15:35)
[2022-04-06] MEDS ORDERED: Clindamycin 600 MG/50 ML 600 MG/50 ML IV.SOLN IVPB SCH (16:00)
[2022-04-06] MEDS ORDERED: Piperacillin/Tazobactam 3.375 GM in 0.9 % Sodium Chloride Mini Bag 100 ML IVPB SCH (16:00)
[2022-04-06 16:06] LABS: Acetaminophen < 10 mcg/mL (10-20); Salicylate < 2.5 mg/dL (15.0-30.0)
[2022-04-06] MEDS ORDERED: *HR* Propofol 200 MG/20 ML VIAL IVP ONE ×2 (16:59→18:14)
[2022-04-06] MEDS ORDERED: Lidocaine 1% 20 ML MDV ONE (17:01)
[2022-04-06] MEDS ORDERED: *HR* Vasopressin 20 UNIT/ML VIAL ONE (17:24)
[2022-04-06 19:43] LABS: Hemoglobin 10.5 g/dL (11.5-15.4)
[2022-04-06] MEDS: Piperacillin/Tazobactam 3.375 GM in 0.9 % Sodium Chloride Mini Bag 100 ML IVPB SCH (20:04)
[2022-04-06] MEDS: Clindamycin 600 MG/50 ML 600 MG/50 ML IV.SOLN IVPB SCH (20:05)
[2022-04-06 20:53] LABS: VBG HCO3 18 mEq/L (21-27); VBG PCO2 37 mmHg (41-51); VBG PH 7.29 pH Units (7.32-7.42); VBG PO2 179 mmHg (25-50)
[2022-04-06 21:00] LABS: Calcium 7.1 mg/dL (8.6-10.3); Potassium 4.7 mEq/L (3.5-5.1)
[2022-04-06] MEDS ORDERED: Insulin DETEMIR 100 UNIT/ML X5UNITS SUBQ ONE (21:20)
[2022-04-06 22:21] LABS: VBG HCO3 17 mEq/L (21-27); VBG PCO2 38 mmHg (41-51); VBG PH 7.26 pH Units (7.32-7.42); VBG PO2 176 mmHg (25-50)
[2022-04-06] MEDS: *HR* OxyCODONE Immed Rel 5 MG TABLET PO PRN (23:23)
[2022-04-07 02:01] LABS: VBG HCO3 17 mEq/L (21-27); VBG PCO2 34 mmHg (41-51); VBG PO2 115 mmHg (25-50)
[2022-04-07 02:08] LABS: Mean Corpuscular Hemoglobin 28.8 pg (28.0-33.3)
[2022-04-07 02:09] LABS: Hematocrit 22.6 % (35.3-44.9); Hemoglobin 7.2 g/dL (11.5-15.4); Mean Corpuscular HGB Conc 31.9 g/dL (31.6-35.5); Mean Corpuscular Volume 90.4 fL (83.0-100.0); Mean Platelet Volume 10.5 fL (9.4-12.4); Monocytes # 1.2 K/mcL (0.0-1.3); Platelet Count 263 K/mcL (140-400); Red Cell Distribution Width 13.7 % (11.5-14.5); White Blood Count 29.1 K/mcL (4.3-11.1)
[2022-04-07 02:15] LABS: INR 1.6; Prothrombin Time 17.6 Seconds (9.4-12.1)
[2022-04-07 02:17] LABS: Calcium 7.2 mg/dL (8.6-10.3); Potassium 5.4 mEq/L (3.5-5.1)
[2022-04-07 02:32] LABS: Lymphocytes # 1.8 K/mcL (0.6-4.6); Neutrophils # 26.2 K/mcL (1.6-8.9); Platelet Estimate Normal (Normal)
[2022-04-07] MEDS ORDERED: Insulin LISPRO 300 UNITS/3 ML VIAL SUBQ ONE (03:37)
[2022-04-07] MEDS ORDERED: Piperacillin/Tazobactam 3.375 GM VIAL ONE ×2 (03:44→03:46)
[2022-04-07 03:52] LABS: Estimated Average Glucose 243 mg/dl; Hemoglobin A1C 10.1 %
[2022-04-07] MEDS: Clindamycin 600 MG/50 ML 600 MG/50 ML IV.SOLN IVPB SCH ×3 (03:57→22:04)
[2022-04-07] MEDS: Piperacillin/Tazobactam 3.375 GM in 0.9 % Sodium Chloride Mini Bag 100 ML IVPB SCH ×3 (03:58→22:20)
[2022-04-07] MEDS ORDERED: Insulin LISPRO 300 UNITS/3 ML VIAL SUBQ SCH ×2 (07:30→21:00)
[2022-04-07] MEDS ORDERED: Calcium Gluconate 1gm/50mL 1 GM/50 ML BAG IVPB ONE ×2 (09:06→10:04)
[2022-04-07 09:23] LABS: Albumin 2.5 g/dL (3.5-5.7); Albumin/Globulin Ratio 0.7 (1.1-2.2); Bilirubin,Direct 0.4 mg/dL (0.0-0.2); Bilirubin,Indirect 0.3 mg/dL (0.0-1.0); Bilirubin,Total 0.7 mg/dL (0.3-1.0); Globulin 3.6 g/dL (2.4-3.5); Phosphorous 3.5 mg/dL (2.7-4.5); Total Protein 6.1 g/dL (6.4-8.9)
[2022-04-07] MEDS: Insulin LISPRO 300 UNITS/3 ML VIAL SUBQ SCH ×3 (10:01→22:30)
[2022-04-07] MEDS: Vancomycin 1,750 MG/517.5 ML IV.SOLN IVPB SCH (10:02)
[2022-04-07] MEDS: Aspirin 81 MG TAB.CHEW PO SCH (10:03)
[2022-04-07] MEDS: *HR* OxyCODONE Immed Rel 5 MG TABLET PO PRN (10:03)
[2022-04-07 10:54] LABS: Bacteria,Urine Few per hpf (None-Few); Bilirubin,Urine Negative (Negative); Blood,Urine Negative (Negative); Clarity,Urine Clear (Clear); Color,Urine Yellow (Yellow); Glucose,Urine (UA) 50 mg/dL (Normal); Ketones,Urine Trace mg/dL (Negative); Leukocyte Esterase,Urine Negative (Negative); Mucus,Urine Few per lpf (None-Few); Nitrite,Urine Negative (Negative); PH,Urine 5.5 pH Units (5.0-8.0); Protein,Urine 30 mg/dL (Neg-Trace); RBC,Urine 0-3 per hpf (0-3); Specific Gravity,Urine 1.023 (1.010-1.025); Squamous Epithelial Cell,Urine Few per hpf (None-Few); Urobilinogen,Urine Normal (Normal); WBC,Urine 0-3 per hpf (0-3)
[2022-04-07] MEDS: Insulin DETEMIR 100 UNIT/ML X5UNITS SUBQ SCH ×2 (12:32→22:31)
[2022-04-07 15:11] LABS: Hematocrit 24.6 % (35.3-44.9); Hemoglobin 7.9 g/dL (11.5-15.4)
[2022-04-07 15:36] LABS: BUN/Creatinine Ratio 21 (6-26); Blood Urea Nitrogen 41 mg/dL (6-20); C-Reactive Protein > 300 mg/L (Less than 10); Carbon Dioxide 18 mEq/L (23-29); Chloride 106 mEq/L (98-107); Glucose 226 mg/dL (70-105); Magnesium 1.7 mg/dL (1.6-2.6); Osmolality,Calculated 293 (280-300); Potassium 4.6 mEq/L (3.5-5.1); Sodium 133 mEq/L (136-145); eGFR For African Americans 33 (> 60); eGFR For Non-African Americans 27 (> 60)
[2022-04-07] MEDS: QUEtiapine Fumarate 100 MG TABLET PO SCH (22:04)
[2022-04-08 01:45] LABS: Basophils # 0.1 K/mcL (0.0-0.2); Basophils % 0.6 %; Eosinophils # 0.3 K/mcL (0.0-0.6); Eosinophils % 1.4 %; Hematocrit 22.6 % (35.3-44.9); Hemoglobin 7.1 g/dL (11.5-15.4); Immature Granulocytes % 6.1 % (0-4); Lymphocytes % 8.7 %; Mean Corpuscular HGB Conc 31.4 g/dL (31.6-35.5); Mean Corpuscular Hemoglobin 28.3 pg (28.0-33.3); Mean Platelet Volume 10.1 fL (9.4-12.4); Monocytes # 1.1 K/mcL (0.0-1.3); Monocytes % 4.8 %; Neutrophils # 17.8 K/mcL (1.6-8.9); Nucleated Red Blood Cells 0.1 /100 WBC (0); Platelet Count 284 K/mcL (140-400); Red Blood Count 2.51 M/mcL (3.82-4.97); Segmented Neutrophils % 78.4 %; White Blood Count 22.7 K/mcL (4.3-11.1)
[2022-04-08 02:13] LABS: Potassium 4.9 mEq/L (3.5-5.1)
[2022-04-08 02:38] LABS: Platelet Estimate Normal (Normal); Reactive Lymphocytes Present (Not Present)
[2022-04-08] MEDS: Piperacillin/Tazobactam 3.375 GM in 0.9 % Sodium Chloride Mini Bag 100 ML IVPB SCH ×2 (06:59→15:28)
[2022-04-08] MEDS: Clindamycin 600 MG/50 ML 600 MG/50 ML IV.SOLN IVPB SCH ×2 (06:59→15:23)
[2022-04-08] MEDS: Insulin LISPRO 300 UNITS/3 ML VIAL SUBQ SCH ×4 (08:32→21:56)
[2022-04-08] MEDS: lisinopriL 10 MG TABLET PO SCH (08:33)
[2022-04-08] MEDS: Aspirin 81 MG TAB.CHEW PO SCH (08:33)
[2022-04-08 09:05] LABS: Troponin I 0.03 ng/mL (< 0.04)
[2022-04-08] MEDS: Insulin DETEMIR 100 UNIT/ML X5UNITS SUBQ SCH ×2 (10:02→22:03)
[2022-04-08 10:13] LABS: Folate > 22.3 ng/mL (3.0-16.0); Vitamin B12 > 1500 pg/mL (250-1100)
[2022-04-08] MEDS: Vancomycin 1,750 MG/517.5 ML IV.SOLN IVPB SCH (10:23)
[2022-04-08] MEDS ORDERED: Perflutren Lipid Microsphere 1.3 ML in 0.9 % Sodium Chloride 8.7 ML IVP PRN (11:03)
[2022-04-08 13:04] LABS: Hematocrit 23.7 % (35.3-44.9); Hemoglobin 7.3 g/dL (11.5-15.4)
[2022-04-08 18:40] LABS: Hematocrit 23.4 % (35.3-44.9); Hemoglobin 7.4 g/dL (11.5-15.4)
[2022-04-08] MEDS: QUEtiapine Fumarate 100 MG TABLET PO SCH (21:56)
[2022-04-09] MEDS: Piperacillin/Tazobactam 3.375 GM in 0.9 % Sodium Chloride Mini Bag 100 ML IVPB SCH ×3 (00:26→16:42)
[2022-04-09] MEDS: Clindamycin 600 MG/50 ML 600 MG/50 ML IV.SOLN IVPB SCH ×3 (00:27→16:41)
[2022-04-09 05:35] LABS: Eosinophils # 0.4 K/mcL (0.0-0.6); Hematocrit 24.9 % (35.3-44.9); Hemoglobin 7.6 g/dL (11.5-15.4); Mean Corpuscular HGB Conc 30.5 g/dL (31.6-35.5); Mean Corpuscular Hemoglobin 28.3 pg (28.0-33.3); Mean Corpuscular Volume 92.6 fL (83.0-100.0); Mean Platelet Volume 9.9 fL (9.4-12.4); Nucleated Red Blood Cells 0.4 /100 WBC (0); Platelet Count 370 K/mcL (140-400); Red Blood Count 2.69 M/mcL (3.82-4.97); Red Cell Distribution Width 14.4 % (11.5-14.5); White Blood Count 20.7 K/mcL (4.3-11.1)
[2022-04-09 05:53] LABS: Calcium 8.5 mg/dL (8.6-10.3); Potassium 5.8 mEq/L (3.5-5.1)
[2022-04-09 06:54] LABS: Platelet Estimate Normal (Normal)
[2022-04-09 06:55] LABS: Lymphocytes # 3.3 K/mcL (0.6-4.6); Neutrophils # 16.2 K/mcL (1.6-8.9)
[2022-04-09 06:56] LABS: Hypochromasia Present (Not Present)
[2022-04-09] MEDS ORDERED: SODIUM ZIRCONIUM CYCLOSILICATE 5 GM POWD.PACK PO ONE (08:24)
[2022-04-09] MEDS: Insulin LISPRO 300 UNITS/3 ML VIAL SUBQ SCH ×4 (08:45→21:07)
[2022-04-09] MEDS: Insulin DETEMIR 100 UNIT/ML X5UNITS SUBQ SCH ×2 (08:48→21:07)
[2022-04-09] MEDS: lisinopriL 10 MG TABLET PO SCH (08:48)
[2022-04-09] MEDS: Aspirin 81 MG TAB.CHEW PO SCH (08:48)
[2022-04-09 10:25] LABS: Calcium 8.2 mg/dL (8.6-10.3); Potassium 5.5 mEq/L (3.5-5.1)
[2022-04-09] MEDS: Vancomycin 1,750 MG/517.5 ML IV.SOLN IVPB SCH (11:39)
[2022-04-09] MEDS: Vancomycin 1,500 MG/265 ML IV.SOLN IVPB SCH (12:06)
[2022-04-09] MEDS: Iron Sucrose Complex 200 MG in 0.9 % Sodium Chloride 100 ML IVPB SCH (15:27)
[2022-04-09] MEDS: QUEtiapine Fumarate 100 MG TABLET PO SCH (21:07)
[2022-04-10] MEDS: Clindamycin 600 MG/50 ML 600 MG/50 ML IV.SOLN IVPB SCH ×2 (00:42→09:49)
[2022-04-10] MEDS: Piperacillin/Tazobactam 3.375 GM in 0.9 % Sodium Chloride Mini Bag 100 ML IVPB SCH ×4 (00:43→22:17)
[2022-04-10] MEDS: Aspirin 81 MG TAB.CHEW PO SCH (08:06)
[2022-04-10] MEDS: lisinopriL 10 MG TABLET PO SCH (08:06)
[2022-04-10] MEDS: Iron Sucrose Complex 200 MG in 0.9 % Sodium Chloride 100 ML IVPB SCH (08:06)
[2022-04-10] MEDS: Insulin DETEMIR 100 UNIT/ML X5UNITS SUBQ SCH ×2 (08:06→22:22)
[2022-04-10 08:28] LABS: Hemoglobin 7.8 g/dL (11.5-15.4); Mean Corpuscular HGB Conc 31.2 g/dL (31.6-35.5); Mean Corpuscular Hemoglobin 28.7 pg (28.0-33.3); Mean Corpuscular Volume 91.9 fL (83.0-100.0); Mean Platelet Volume 9.3 fL (9.4-12.4); Platelet Count 400 K/mcL (140-400); Red Blood Count 2.72 M/mcL (3.82-4.97); Red Cell Distribution Width 14.3 % (11.5-14.5); White Blood Count 21.5 K/mcL (4.3-11.1)
[2022-04-10 08:47] LABS: Calcium 8.9 mg/dL (8.6-10.3); Potassium 5.3 mEq/L (3.5-5.1)
[2022-04-10] MEDS: Insulin LISPRO 300 UNITS/3 ML VIAL SUBQ SCH ×4 (09:48→20:45)
[2022-04-10] MEDS: Vancomycin 1,500 MG/265 ML IV.SOLN IVPB SCH (13:03)
[2022-04-10] MEDS: QUEtiapine Fumarate 100 MG TABLET PO SCH (20:43)
[2022-04-11 01:23] LABS: Hematocrit 22.4 % (35.3-44.9); Mean Corpuscular HGB Conc 31.3 g/dL (31.6-35.5); Mean Corpuscular Hemoglobin 28.6 pg (28.0-33.3); Mean Corpuscular Volume 91.4 fL (83.0-100.0); Mean Platelet Volume 9.3 fL (9.4-12.4); Platelet Count 417 K/mcL (140-400); Red Blood Count 2.45 M/mcL (3.82-4.97); Red Cell Distribution Width 14.3 % (11.5-14.5); White Blood Count 21.8 K/mcL (4.3-11.1)
[2022-04-11 01:41] LABS: BUN/Creatinine Ratio 24 (6-26); Blood Urea Nitrogen 26 mg/dL (6-20); Calcium 8.5 mg/dL (8.6-10.3); Carbon Dioxide 22 mEq/L (23-29); Chloride 110 mEq/L (98-107); Glucose 224 mg/dL (70-105); Osmolality,Calculated 296 (280-300); Potassium 5.1 mEq/L (3.5-5.1); Sodium 137 mEq/L (136-145); eGFR For African Americans > 60 (> 60); eGFR For Non-African Americans 54 (> 60)
[2022-04-11] MEDS: lisinopriL 10 MG TABLET PO SCH (07:38)
[2022-04-11] MEDS: Insulin DETEMIR 100 UNIT/ML X5UNITS SUBQ SCH ×2 (07:38→21:51)
[2022-04-11] MEDS: Aspirin 81 MG TAB.CHEW PO SCH (07:38)
[2022-04-11] MEDS: Insulin LISPRO 300 UNITS/3 ML VIAL SUBQ SCH ×4 (07:40→21:50)
[2022-04-11] MEDS: Iron Sucrose Complex 200 MG in 0.9 % Sodium Chloride 100 ML IVPB SCH (07:40)
[2022-04-11] MEDS: cefTRIAXone 2,000 MG in 0.9 % Sodium Chloride Mini Bag 100 ML IVPB SCH (08:29)
[2022-04-11] MEDS: Vancomycin 1,500 MG/265 ML IV.SOLN IVPB SCH (12:08)
[2022-04-11] MEDS: QUEtiapine Fumarate 100 MG TABLET PO SCH (21:42)
[2022-04-11] MEDS: Latanoprost 2.5 ML BOTTLE BOTH EYES SCH (21:51)
[2022-04-12 04:16] LABS: Sodium, Urine 103.9 mEq/L
[2022-04-12 05:35] LABS: Hematocrit 24.5 % (35.3-44.9); Hemoglobin 7.6 g/dL (11.5-15.4); Mean Corpuscular Volume 93.5 fL (83.0-100.0); Mean Platelet Volume 9.3 fL (9.4-12.4); Nucleated Red Blood Cells 0.6 /100 WBC (0); Platelet Count 440 K/mcL (140-400); Red Blood Count 2.62 M/mcL (3.82-4.97); Red Cell Distribution Width 14.6 % (11.5-14.5); White Blood Count 21.1 K/mcL (4.3-11.1)
[2022-04-12 05:54] LABS: Monocytes # 0.4 K/mcL (0.0-1.3); Neutrophils # 15.2 K/mcL (1.6-8.9); Platelet Estimate Normal (Normal)
[2022-04-12 05:55] LABS: Anisocytosis 1+ (Not Present); Hypochromasia Present (Not Present); Microcytosis Present (Not Present)
[2022-04-12 05:57] LABS: BUN/Creatinine Ratio 21 (6-26); Blood Urea Nitrogen 17 mg/dL (6-20); Calcium 9.2 mg/dL (8.6-10.3); Carbon Dioxide 25 mEq/L (23-29); Chloride 108 mEq/L (98-107); Glucose 192 mg/dL (70-105); Osmolality,Calculated 295 (280-300); Potassium 4.7 mEq/L (3.5-5.1); Sodium 139 mEq/L (136-145); eGFR For African Americans > 60 (> 60); eGFR For Non-African Americans > 60 (> 60)
[2022-04-12] MEDS: cefTRIAXone 2,000 MG in 0.9 % Sodium Chloride Mini Bag 100 ML IVPB SCH (08:42)
[2022-04-12] MEDS: Aspirin 81 MG TAB.CHEW PO SCH (08:44)
[2022-04-12] MEDS: lisinopriL 10 MG TABLET PO SCH (08:44)
[2022-04-12] MEDS: Insulin LISPRO 300 UNITS/3 ML VIAL SUBQ SCH ×4 (08:45→17:23)
[2022-04-12] MEDS: Insulin DETEMIR 100 UNIT/ML X5UNITS SUBQ SCH ×2 (08:47→23:00)
[2022-04-12] MEDS: Vancomycin 1,750 MG/517.5 ML IV.SOLN IVPB SCH (15:08)
[2022-04-12] MEDS ORDERED: Insulin LISPRO 300 UNITS/3 ML VIAL SUBQ SCH (21:00)
[2022-04-12] MEDS: QUEtiapine Fumarate 100 MG TABLET PO SCH (22:56)
[2022-04-12] MEDS: Latanoprost 2.5 ML BOTTLE BOTH EYES SCH (22:59)
[2022-04-13] MEDS: Vancomycin 1,500 MG/265 ML IV.SOLN IVPB SCH (07:20)
[2022-04-13 07:51] VITALS: TEMP 97.6
[2022-04-13] MEDS: Aspirin 81 MG TAB.CHEW PO SCH (08:07)
[2022-04-13] MEDS: lisinopriL 10 MG TABLET PO SCH (08:08)
[2022-04-13] MEDS: cefTRIAXone 2,000 MG in 0.9 % Sodium Chloride Mini Bag 100 ML IVPB SCH (08:08)
[2022-04-13] MEDS: Insulin LISPRO 300 UNITS/3 ML VIAL SUBQ SCH ×4 (08:08→13:04)
[2022-04-13] MEDS: Insulin DETEMIR 100 UNIT/ML X5UNITS SUBQ SCH (08:15)
[2022-04-13 10:21] VITALS: BP 154/83; PULSE 85; O2SAT 96
[2022-04-13 10:59] LABS: Hematocrit 25.8 % (35.3-44.9); Hemoglobin 7.8 g/dL (11.5-15.4); Mean Corpuscular HGB Conc 30.2 g/dL (31.6-35.5); Mean Corpuscular Hemoglobin 28.1 pg (28.0-33.3); Mean Corpuscular Volume 92.8 fL (83.0-100.0); Mean Platelet Volume 9.3 fL (9.4-12.4); Nucleated Red Blood Cells 0.3 /100 WBC (0); Platelet Count 445 K/mcL (140-400); Red Blood Count 2.78 M/mcL (3.82-4.97); Red Cell Distribution Width 15.5 % (11.5-14.5); White Blood Count 19.5 K/mcL (4.3-11.1)
[2022-04-13 11:17] LABS: BUN/Creatinine Ratio 17 (6-26); Blood Urea Nitrogen 16 mg/dL (6-20); C-Reactive Protein 47 mg/L (Less than 10); Calcium 9.1 mg/dL (8.6-10.3); Carbon Dioxide 27 mEq/L (23-29); Chloride 106 mEq/L (98-107); Glucose 241 mg/dL (70-105); Osmolality,Calculated 297 (280-300); Potassium 4.5 mEq/L (3.5-5.1); Sodium 139 mEq/L (136-145); eGFR For African Americans > 60 (> 60); eGFR For Non-African Americans > 60 (> 60)
[2022-04-13 11:41] LABS: Lymphocytes # 2.7 K/mcL (0.6-4.6); Monocytes # 0.8 K/mcL (0.0-1.3); Neutrophils # 14.8 K/mcL (1.6-8.9)
[2022-04-13] MEDS: Vancomycin 1,750 MG/517.5 ML IV.SOLN IVPB SCH (14:39)
== END 2022-04-13 16:01 | DRG 853 ==
LOC: 2NNU 06:01 → EMEROOARM 06:01 → SUATTDRO 16:04 → 2NNU 17:50 → 3ANU 04-07 21:16
PROVIDERS: ADMIT Student in an Organized Health Care Education/Training Program; ATTEND Internal Medicine